=== PATIENT | female | born 1980 | race Caucasian/White ===

== ENCOUNTER → 2017-05-06 | Outpatient (CLI) | payer BC ==
--- NOTE | 2017-05-06 15:55 | CT ---
EXAMINATION TYPE: CT sinus wo con DATE OF EXAM: 05/06/2017 COMPARISON: NONE HISTORY: Patient complains of chronic sinus drainage. Patient has a history of prior sinus surgery. CT DLP: 666.6 mGycm CONTRAST: 0 mL of Omnipaque 300 The paranasal sinuses are examined in the axial plane at 2 mm thick sections. Reconstructed images i n the coronal plane were obtained. There is dental amalgam scatter artifact There is almost complete opacification of the right maxillary sinus. There is complete opacification left maxillary sinus post ethmoidectomy changes are present within the mid to posterior portion. The anterior and mid portions of the ethmoid air cells appear opacified. The frontal sinuses are complet eugene opacified. Sphenoid sinuses are clear. The septum is evaluated. There is septal deviation to the left. The ostiomeatal units are patent. There is prior uncinectomies. IMPRESSIONS: 1. Postsurgical changes with uncinectomies and ethmoidectomies. 2. Pansinus mucosal thickening with opacification of the left maxillary sinus and of anterior ethmoid air cells and left mid ethmoid air cells as well as the frontal sinuses. Correlate for chronic sinus itis. Polyposis could be considered within the differential.
== END | disposition home or self-care (01) ==
LOC: RADCTMAIN 15:30
PROVIDERS: ATTEND Family Medicine
DX: J34.89 Other specified disorders of nose and nasal sinuses (principal); Z98.890 Other specified postprocedural states
CPT/HCPCS: 70486

== ENCOUNTER 2021-03-31 10:48 | Outpatient (CLI) | payer BC ==
--- NOTE | 2021-03-31 12:49 | US ---
EXAMINATION TYPE: US OB >= 14 wk fetus DATE OF EXAM: 03/31/2021 COMPARISON: None CLINICAL HISTORY: rule out PROM, 27 weeks TECHNIQUE: Transabdominal (TA) GESTATIONAL AGE / DATING Physician Established: (27 weeks/3 days) EDC: 06/27/2021 Dates by LMP: (27 weeks/3 days) EDC: 06/27/2021 Dates by First Scan: No previous this is first scan Dates by Current Scan: (29 weeks/3 days) EDC: 06/13/2021 SURVEY IUP: Single PLACENTA: Posterior PREVIA: No Previa ANDREW: 16.6 cm Normal CERVICAL LENGTH (transabdominal: norm > 3.0cm): 3.6 cm BIOMETRY PRESENTATION: Breech LIE: Transverse with head maternal left BPD: 7.3 cm 29 weeks / 2 days HC: 27.3 cm 29 weeks / 6 days AC: 25.3 cm 29 weeks / 4 days FL: 5.4 cm 28 weeks / 5 days ESTIMATED WEIGHT IN GRAMS: 1353 grams ESTIMATED WEIGHT IN LBS/OZ: 3 lbs. 0 oz. WEIGHT PERCENTAGE BASED ON ESTABLISHED DATES: 95% HC/AC: 1.08 Normal FL/AC: 21% Normal HEART RATE: 143 bpm RHYTHM: Normal Viable IUP with an JANET of 06/13/2021 by this exam. This is not an anatomic survey. IMPRESSION: Single live intrauterine with gestational age measuring approximately 29 weeks and 3 days b y sonographic criteria.
--- NOTE | 2021-03-31 15:37 | P.TRANS ---
Providers Expected date of discharge: 03/31/21 Attending physician: Mitch Mcgrath Primary care physician: Stated None Hospital Course: Elmira is a 40-year-old at 27 weeks 2 days gestation who relates that last night in the middle night she noticed some leaking of fluid and noted that it was pink in color. She continued to leak somewhat through the night and into the morning therefore she called our office and was told go to labor and delivery. In labor and delivery and initial amniosure was performed which was positive the nurse did check her cervix even that she was in labor and was noted to be closed. One exam only has been done. Due to question all findings because there was some blood there and there is a failure rate of false positivity with amnio sugars and blood and ultrasound was done and the ANDREW in labor and delivery with 16. With what is a very normal ANDREW and limited leaking per patient at that time we did continue to monitor her for about an hour and repeated her amnisure at that time which unfortunately again was positive. Due to 2 positive amnisure tests we are transferring her to a tertiary care center for more thorough evaluation and further testing area and we did not give any steroids at this point. She is not klaudia or having any signs or symptoms of labor therefore no other medications have been started. We will defer to their care. I did discuss the case with maternal medicine and they have agreed to accept the transfer. All questions are answered for her at this time. She is otherwise stable. She and I did discuss that this may be more than what as needed as it may very well be that she is not rupture but with again 2 positive amnio sugars and less than 7% failure rate on any individual 1 even with blood present I cannot take the chance of having her go into labor at our facility at 27 weeks. Her vital signs are stable and afebrile. Heart regular, lungs clear, extremities without pain. Abdomen soft nontender to category 1 tracing is noted. Patient Condition at Discharge: Stable
[2021-03-31 16:18] VITALS: BP 116/66; PULSE 89; RESP 16; TEMP 98.5
== END 2021-03-31 16:35 | disposition other institution (70) ==
LOC: FBPOP 10:48
PROVIDERS: ATTEND Obstetrics & Gynecology
DX: O42.913 Preterm premature rupture of membranes, unspecified as to length of time between rupture and onset of labor, third trimester (principal); Z3A.29 29 weeks gestation of pregnancy; Z87.891 Personal history of nicotine dependence
CPT/HCPCS: 76805; 82731; 84112; 99213

== ENCOUNTER 2021-06-16 04:03 | Inpatient (IN) | payer BC ==
[2021-06-16] MEDS: LACTATED RINGERS 1,000 ML IV SCH ×3 (04:46→22:00)
[2021-06-16 05:28] LABS: Basophils % (A) 0 %; Eosinophils % (A) 0 %; HCT 34.2 % (34.0-46.0); HGB 11.5 gm/dL (11.4-16.0); Lymphocytes # (A) 1.6 k/uL (1.0-4.8); Lymphocytes % (A) 22 %; MCH 32.6 pg (25.0-35.0); MCHC 33.8 g/dL (31.0-37.0); MCV 96.5 fL (80.0-100.0); Mean Platelet Volume 10.8; Monocytes # (A) 0.5 k/uL (0-1.0); Monocytes % (A) 7 %; Neutrophils # (A) 5.2 k/uL (1.3-7.7); Neutrophils % (A) 69 %; Platelet Count 189 k/uL (150-450); RBC 3.54 m/uL (3.80-5.40); RDW 13.2 % (11.5-15.5); WBC 7.6 k/uL (3.8-10.6)
[2021-06-16] MEDS ORDERED: CITRIC ACID-SODIUM CITRATE 15 ML CUP PO ONE (06:58)
[2021-06-16] MEDS ORDERED: LACTATED RINGERS 1,000 ML IV ONE (06:59)
[2021-06-16] MEDS ORDERED: LIDOCAINE 1% (10MG/ML) FOR IV START INTRADERMA PRN (06:59)
[2021-06-16] MEDS ORDERED: LACTATED RINGERS 1,000 ML IV SCH (07:00)
[2021-06-16] MEDS ORDERED: MORPHINE SULFATE (PF) 0.3 MG/0.3 ML SYR ONE (07:20)
[2021-06-16] MEDS ORDERED: ONDANSETRON 4 MG/2 ML VIAL ONE (07:20)
[2021-06-16] MEDS ORDERED: .MORPHINE SULFATE (INJ) 10 MG/ML SYRINGE ONE (07:20)
[2021-06-16] MEDS ORDERED: KETOROLAC 15 MG/ML 1 ML VIAL ONE (07:20)
[2021-06-16] MEDS ORDERED: OXYTOCIN 30 UNITS/500 ML NS BAG IV ONE (07:20)
[2021-06-16] MEDS ORDERED: fentaNYL (PF) 50 MCG/ML 2 ML AMP ONE (07:20)
--- NOTE | 2021-06-16 07:23 | P.HPOB ---
History of Present Illness H&P Date: 06/16/21 Chief Complaint: Vaginal bleeding, contractions This is a 40-year-old female 3 para 1 with an estimated date of confinement of 06/27/2021, estimated gestational age of 38-3/7 weeks, presents to labor and delivery with complaints of vaginal bleeding when she woke up this morning followed by contractions that started on the way to the hospital. Her contractions have become stronger since she has been in triage. She denies any rupture of membranes. The bleeding was initially heavy with some small clots and has slowed down since arrival. course has been with Dr. Meza and has been uncomplicated per patient. labs: Hepatitis B surface antigen-negative RPR-nonreactive Rubella-immune Blood type-O+ Antibody screen-negative HIV-nonreactive Hemoglobin-12.4 Random glucose-73 One hour Glucola-133 Three-hour Glucola-within normal limits Group B streptococcus-negative Obstetrical history: . History of 1 section due to failure to progress. History of 1 miscarriage. 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 Review of Systems Constitutional: Denies chills, Denies fever Eyes: denies blurred vision, denies pain Ears, nose, mouth and throat: Denies headache, Denies sore throat Cardiovascular: Denies chest pain, Denies shortness of breath Respiratory: Denies cough Gastrointestinal: Reports abdominal pain (Contractions) Genitourinary: Reports abnormal vaginal bleeding, Reports pelvic pain Musculoskeletal: Reports low back pain Integumentary: Denies pruritus, Denies rash Neurological: Denies numbness, Denies weakness Psychiatric: Denies anxiety, Denies depression Past Medical History Past Medical History: No Reported History History of Any Multi-Drug Resistant Organisms: None Reported Past Surgical History: Section Additional Past Surgical History / Comment(s): sinus surgery Past Anesthesia/Blood Transfusion Reactions: No Reported Reaction Additional Past Anesthesia/Blood Transfusion Reaction / Comment(s): itching r/t duramorph. has had blood transfusion after previous c/s without reaction. Past Psychological History: No Psychological Hx Reported Smoking Status: Never smoker Past Alcohol Use History: None Reported Past Drug Use History: None Reported - Past Family History Father Family Medical History: Hypertension Medications and Allergies Home Medications Medication Instructions Recorded Confirmed Type Fgo-Oapo-Xteax Acid 1 each PO DAILY 07/09/14 06/16/21 History [-U Capsule] Aspirin [Children's Aspirin] 81 mg PO DAILY 03/31/21 06/16/21 History Allergies Allergy/AdvReac Type Severity Reaction Status Date / Time No Known Allergies Allergy Verified 06/16/21 04:22 Exam Osteopathic Statement: *. No significant issues noted on an osteopathic str uctural exam other than those noted in the History and Physical/Consult. Intake and Output 06/15/21 06/16/21 06/16/21 22:59 06:59 14:59 Other: Weight 85.275 kg HEENT: Within normal limits Heart: Regular rate and rhythm Lungs: Clear to auscultation bilaterally Abdomen: Cervix: Initially was 3 cm on admission and currently is 4 cm/90%/-2 station with a bulging bag and some bloody show. heart tones: Category 1, reactive Contractions: Every 2-4 minutes Extremities: Negative Homans Results Result Diagrams: 06/16/21 04:58 Abnormal Lab Results - Last 24 Hours (Table) 06/16/21 Range/Units 04:58 RBC 3.54 L (3.80-5.40) m/uL Assessment and Plan (1) 38 weeks gestation of Current Visit: Yes Status: Acute Code(s): Z3A.38 - 38 WEEKS GESTATION OF SNOMED Code(s): 32915762 (2) Active labor Current Visit: Yes Status: Acute Code(s): CJE8983 - SNOMED Code(s): 335325323 (3) Previous delivery affecting Current Visit: Yes Status: Acute Code(s): O34.219 - MATERNAL CARE FOR UNSP TYPE SCAR FROM PREVIOUS DEL SNOMED Code(s): 833033828 (4) Family planning Current Visit: Yes Status: Acute Code(s): Z30.09 - ENCOUNTER FOR OTH GENERAL CNSL AND ADVICE ON CONTRACEPTION SNOMED Code(s): 903279396 Plan: Plan is admission for repeat section with tubal ligation. Antibiotic prophylaxis. I have discussed the risks, benefits, and alternative therapies for the above- mentioned procedure and for both sedation/anesthesia as well as necessary blood products administration, if indicated, as they pertain to this patient. The patient has indicated her understanding and acceptance of the risks and procedures discussed.
[2021-06-16] MEDS ORDERED: ONDANSETRON 4 MG/2 ML VIAL IVP PRN (07:51)
[2021-06-16] MEDS ORDERED: diphenhydrAMINE 50 MG/ML 1 ML VIAL IVP PRN ×3 (07:51→08:10)
[2021-06-16] MEDS ORDERED: NALOXONE 0.4 MG/ML 1 ML VIAL IV PRN (07:51)
[2021-06-16] MEDS ORDERED: MORPHINE SULFATE 2 MG/ML SYRINGE IVP PRN (07:51)
[2021-06-16] MEDS ORDERED: diphenhydrAMINE 25 MG CAP PO PRN (08:10)
[2021-06-16] MEDS ORDERED: SIMETHICONE 80 MG CHEWABLE PO PRN (08:10)
[2021-06-16] MEDS ORDERED: LANOLIN CREAM 5 GM TUBE TOPICAL PRN (08:10)
[2021-06-16] MEDS ORDERED: METOCLOPRAMIDE 5 MG/ML 2 ML VIAL IVP PRN (08:10)
[2021-06-16] MEDS ORDERED: diphenhydrAMINE 50 MG CAP PO PRN (08:10)
[2021-06-16] MEDS ORDERED: ZOLPIDEM 5 MG TAB PO PRN (08:10)
--- NOTE | 2021-06-16 08:10 | P.OP ---
Date of Procedure: 06/16/21 Preoperative Diagnosis: 1. active labor 2. previous 3. family planning Postoperative Diagnosis: 1.active labor 2. previous 3. active labor Procedure(s) Performed: Repeat Low transverse with tubal ligation Anesthesia: spinal Surgeon: Noris Meza Seed Laboratory Technician #1: Viviana Alexander Estimated Blood Loss (ml): 343 IV fluids (ml): 500 Urine output (ml): 200 Pathology: other (segment of fallopian tubes and placenta) Condition: stable Disposition: floor Operative Findings: viable male. 9,9 weight 8 pounds 6 ounces Description of Procedure: Patient was taken to the operating room where spinal anesthesia was found be adequate. She was prepped and draped in normal sterile fashion in dorsal supine position with a leftward tilt. Pfannenstiel skin incision was made the scalpel and carried through to the underlying layer of fascia with the scalpel. Fascia was incised in midline and carried bilaterally with the Lam scissors. The superior aspect of the fascial incision was grasped with Madison clamps elevated and the underlying rectus muscles dissected off with the Lam's. Attention was then turned to inferior aspect of same incision which in a similar fashion was grasped tented up and the underlying rectus muscles dissected off with the Lam's. The rectus muscles were the midline and the peritoneum was identified tented up and entered sharply with the scalpel. The incision was extended superiorly and inferiorly with good visualization of the bladder. The bladder blade was inserted and the vesicouterine peritoneum was incised the Metzenbaums then carried bilaterally and bladder flap created digitally. A low transverse incision was then made on the uterus with the scalpel. This was carried bilaterally and digital manner. Infant's head delivered atraumatically, nose and mouth bulb suctioned, cord clamped and cut, handed off to waiting nurses. Apgars 9,9, weight 8 lbs. 6 oz. Placenta delivered manually, i ntact with three-vessel cord. The uterus is exteriorized and cleared of all clots and debris. The uterine incision was closed with 0 Vicryl in a running locked fashion. Second layer of the same sutures used in imbricating fashion to obtain excellent hemostasis. Bladder flap was then reapproximated using 2-0 Vicryl in a running fashion. Both ovaries and tubes appeared normal. The left fallopian tube was grasped with a hemostat and a window was made in the mesosalpinx with the Bovie. The left fallopian tube was doubly ligated and a segment was removed, pedicles cauterized with the Bovie. The right fallopian tube was grasped with hemostat and a window was made in the mesosalpinx with the Bovie. The right fallopian tube was doubly ligated and a segment was removed. The pedicles were cauterized with the Bovie. The uterus was placed back into the abdomen. The peritoneum was reapproximated using 2-0 Vicryl in a running fashion. The muscles were reapproximated using 2-0 Vicryl in interrupted fashion. The fascia was reapproximated using 0 Vicryl in a running fashion. The subcutaneous tissues closed with 3-0 Vicryl running fashion. The skin was closed omer. Patient tolerated the procedure well, sponge and instrument counts were correct times 2 and she was taken to the recovery room in stable condition.
[2021-06-16] MEDS ORDERED: OXYTOCIN 30 UNITS/500 ML NS 30 UNIT in SALINE 1 500ML.BAG IV SCH (08:15)
[2021-06-16] MEDS: KETOROLAC 15 MG/ML 1 ML VIAL IVP SCH (19:18)
[2021-06-16] MEDS: ACETAMINOPHEN TAB 500 MG TAB PO SCH (21:56)
[2021-06-16] MEDS: SENNOSIDES-DOCUSATE SODIUM 1 EACH TAB PO SCH (21:58)
[2021-06-16] MEDS: IBUPROFEN 600 MG TAB PO SCH ×2 (22:00→22:01)
[2021-06-17] MEDS: ACETAMINOPHEN TAB 500 MG TAB PO SCH ×4 (00:51→19:46)
[2021-06-17] MEDS: KETOROLAC 15 MG/ML 1 ML VIAL IVP SCH (04:13)
[2021-06-17 05:16] LABS: Basophils % (A) 0 %; Eosinophils % (A) 0 %; HCT 28.7 % (34.0-46.0); Lymphocytes # (A) 1.3 k/uL (1.0-4.8); Lymphocytes % (A) 15 %; MCH 33.7 pg (25.0-35.0); MCHC 34.4 g/dL (31.0-37.0); MCV 97.9 fL (80.0-100.0); Mean Platelet Volume 10.7; Monocytes # (A) 0.5 k/uL (0-1.0); Monocytes % (A) 6 %; Neutrophils # (A) 6.5 k/uL (1.3-7.7); Neutrophils % (A) 77 %; Platelet Count 143 k/uL (150-450); RBC 2.94 m/uL (3.80-5.40); RDW 13.5 % (11.5-15.5); WBC 8.5 k/uL (3.8-10.6)
[2021-06-17 05:49] LABS: HGB 9.9 gm/dL (11.4-16.0)
--- NOTE | 2021-06-17 07:10 | P.PN ---
Progress Note - Text 06/17/21 647am 30-year-old female status post with spinal Duramorph. Patient seen and evaluated this morning for postop pain control, patient has a VAS of 4, no complains of nausea vomiting or pruritus.
[2021-06-17] MEDS: SENNOSIDES-DOCUSATE SODIUM 1 EACH TAB PO SCH ×2 (08:29→20:01)
[2021-06-17] MEDS: IBUPROFEN 600 MG TAB PO SCH ×4 (11:24→23:28)
[2021-06-18 00:48] VITALS: RESP 16
[2021-06-18] MEDS: ACETAMINOPHEN TAB 500 MG TAB PO SCH ×3 (04:11→13:43)
--- NOTE | 2021-06-18 07:23 | P.PNOBGPC ---
Subjective - Subjective Principal diagnosis: S/P RLTCS with TL POD #1 Interval history: Pt seen and examined. Denies M/V,F/C, CP, SOB, calf pain. Patient reports: Reports appetite normal, Reports voiding normally, Reports pain well controlled, Reports ambulating normally : doing well Objective - Vital Signs Latest vital signs: Vital Signs Temp Pulse Resp BP 06/18/21 04:00 97.5 F L 78 16 123/74 06/18/21 00:00 98.0 F 58 L 16 119/56 06/17/21 16:00 98.5 F 142 H 44 H 124/79 06/17/21 11:40 98.0 F 75 17 118/71 06/17/21 08:30 98.3 F 72 16 130/84 - Exam Lungs: bilateral: normal Chest: Normal S1, Normal S2 Extremities: Present: normal Abdomen: Present: normal appearance, soft. Absent: distention, tenderness Incision: Present: normal, dry, intact Uterus: Present: normal, firm Assessment and Plan (1) Status post repeat low transverse section Current Visit: Yes Status: Acute Code(s): Z98.891 - HISTORY OF UTERINE SCAR FROM PREVIOUS SURGERY SNOMED Code(s): 518041592 (2) Status post tubal ligation at time of delivery, current hosp Current Visit: Yes Status: Acute Code(s): O80 - ENCOUNTER FOR FULL-TERM UNCOMPLICATED DELIVERY; Z30.2 - ENCOUNTER FOR STERILIZATION SNOMED Code(s): 877959470 Plan: 1. cont pp care
[2021-06-18] MEDS: SENNOSIDES-DOCUSATE SODIUM 1 EACH TAB PO SCH ×2 (07:34→09:21)
[2021-06-18] MEDS: IBUPROFEN 600 MG TAB PO SCH ×2 (07:34→09:21)
--- NOTE | 2021-06-18 07:53 | P.DS ---
Providers Date of admission: 06/16/21 07:02 Expected date of discharge: 06/18/21 Attending physician: Noris Meza Primary care physician: Stated None - Discharge Diagnosis(es) (1) Status post repeat low transverse section Current Visit: Yes Status: Acute (2) Status post tubal ligation at time of delivery, current hosp Current Visit: Yes Status: Acute Hospital Course: Patient presented in active labor. She underwent a repeat low transverse C- section with tubal ligation. Postoperative course is uncomplicated. She'll be discharged home postoperative day #1 in stable condition to follow-up with me in one week. Plan - Discharge Summary New Discharge Prescriptions: New oxyCODONE HCL [OxyIR] 5 mg PO Q4HR PRN #20 tab PRN Reason: Pain Scale 4 - 6 Ibuprofen [Motrin] 600 mg PO Q6H #40 tab No Action Xwi-Iidf-Qycpj Acid [-U Capsule] 1 each PO DAILY Aspirin [Children's Aspirin] 81 mg PO DAILY Discharge Medication List [id number]-Btkt-[id number] Acid [-U Capsule] 1 each PO DAILY 07/09/14 [History] Aspirin [Children's Aspirin] 81 mg PO DAILY 03/31/21 [History] Ibuprofen [Motrin] 600 mg PO Q6H #40 tab 06/18/21 [Rx] oxyCODONE HCL [OxyIR] 5 mg PO Q4HR PRN #20 tab 06/18/21 [Rx] Follow up Appointment(s)/Referral(s): Noris Meza DO [Doctor of Osteopathic Medicine] - 1 Week Discharge Disposition: HOME SELF-CARE
[2021-06-18 15:00] VITALS: BP 127/71; PULSE 72; TEMP 98.3
== END 2021-06-18 18:44 | disposition home or self-care (01) | DRG 785 ==
LOC: FBPOP 04:03 → 4FBP 07:02
PROVIDERS: ADMIT Obstetrics & Gynecology; ATTEND Obstetrics & Gynecology
PROC: 0UB70ZZ Excision of Bilateral Fallopian Tubes, Open Approach (ICD-10-PCS; 2021-06-16)
PROC: 10D00Z1 Extraction of Products of Conception, Low, Open Approach (ICD-10-PCS; principal; 2021-06-16 07:20)
DX: O34.211 Maternal care for low transverse scar from previous cesarean delivery (principal); Z30.2 Encounter for sterilization; Z37.0 Single live birth; Z3A.38 38 weeks gestation of pregnancy; Z79.82 Long term (current) use of aspirin
CPT/HCPCS: 59025; 85025; 86850; 86900; 86901; 88302; 88307; 99213

== ENCOUNTER → 2024-01-14 | Outpatient (CLI) | payer BC ==
--- NOTE | 2024-01-14 13:58 | US ---
EXAMINATION TYPE: US abdomen limited DATE OF EXAM: 01/14/2024 COMPARISON: NONE CLINICAL INDICATION: Female, 43 years old with history of R10.11 RUQ PAIN R10.811 RUQ ABD TENDERNESS; RUQ pain x 1 month, gets worse after eating TECHNIQUE: Multiple sonographic images of the right upper quadrant are obtained. FINDINGS: EXAM MEASUREMENTS: Liver Length: 13.7 cm Gallbladder Wall: 0.2 cm CBD: 0.4 cm Right Kidney: 9.4 x 4.0 x 4.0 cm Pancreas: visualized portions wnl, limited by overlying midline bowel gas Liver: mildly heterogeneous Gallbladder: wnl Evidence for sonographic Eisenberg's sign: yes CBD: wnl Right Kidney: wnl IMPRESSION: 1. No acute ultrasound abnormality right upper quadrant ultrasound.
== END | disposition home or self-care (01) ==
LOC: RADUSWWP 08:55
PROVIDERS: ATTEND Family Medicine
DX: R10.11 Right upper quadrant pain (principal); R10.811 Right upper quadrant abdominal tenderness
CPT/HCPCS: 76705

== ENCOUNTER → 2024-02-15 | Outpatient (CLI) | payer BC ==
--- NOTE | 2024-02-15 09:44 | NM ---
EXAMINATION TYPE: NM hepatobiliary w EF DATE OF EXAM: 02/15/2024 9:11 AM COMPARISON: Ultrasound 01/14/2024 CLINICAL INDICATION:Female, 43 years old with history of R10.11 RUQ pain; TECHNIQUE: The patient was given 5 mCi of Technetium 99m-Mebrofenin as a radiotracer and multiple sc intigraphic images were obtained of the abdomen. Gallbladder function was also assessed after the adm inistration of ensure drink and additional scintigraphic images were obtained of the abdomen. A regio n of interest was drawn over the gallbladder and a timing activity curve was generated. The gallbladd er ejection fraction was calculated. FINDINGS: Normal uptake of radiotracer was identified within the liver with excretion into the hepatic and comm on biliary ducts within 120 seconds . There was normal progressive washout of the liver over the cour se of the study. Radiotracer uptake within the gallbladder at 12/42 minutes as well as small bowel ac tivity was identified at 44 minutes minutes. Maximum calculated gallbladder ejection fraction is: 61% at 30 minutes (Normal gallbladder ejection fraction is > 35%) IMPRESSION: 1. Normal hepatobiliary scan. 2. Normal ejection fraction.
== END ==
LOC: RADNMMAIN 06:58
PROVIDERS: ATTEND Family Medicine
DX: R10.11 Right upper quadrant pain (principal); R10.811 Right upper quadrant abdominal tenderness; Z87.891 Personal history of nicotine dependence
CPT/HCPCS: 78226; A9537

== ENCOUNTER → 2025-05-16 | Outpatient (CLI) | payer BC ==
--- NOTE | 2025-05-16 09:10 | CT ---
EXAMINATION TYPE: CT abdomen pelvis w con CT DLP: 450.50 mGycm, Automated exposure control for dose reduction was used. DATE OF EXAM: 05/16/2025 9:04 AM COMPARISON: Abdominal ultrasound 01/14/2024, nuclear medicine HIDA scan 02/15/2024 CLINICAL INDICATION:Female, 44 years old with history of R10.11,R10.811,R10.813 NAUSEA; RT sided abdo celia pain TECHNIQUE: Standard CT of the abdomen and pelvis following the administration of 100 cc of Isovue 3 00 IV contrast material and oral contrast. Coronal and sagittal reformats were performed. FINDINGS: LOWER CHEST: Unremarkable ABDOMEN LIVER: Unremarkable GALLBLADDER AND BILE DUCTS: Unremarkable. PANCREAS: Unremarkable. SPLEEN: Unremarkable. ADRENAL GLANDS: Unremarkable. KIDNEYS AND URETERS: No evidence of hydronephrosis or renal calculus. The kidneys enhance symmetrical ly. Contrast demonstrate within both collecting systems on the delayed phase. Prominent bilateral ext rarenal pelvises. PELVIS BLADDER: Unremarkable REPRODUCTIVE: Unremarkable. ABDOMEN & PELVIS STOMACH AND BOWEL: Stomach and duodenum are unremarkable. Enteric contrast reaches the rectum. No bow el wall thickening or stranding inflammatory changes. The appendix is within normal limits. No eviden ce of bowel obstruction. PERITONEUM: No evidence of pneumoperitoneum or free fluid. VASCULATURE: No evidence of aortic aneurysm. Left-sided pelvic fluid. MUSCULOSKELETAL: No acute osseous abnormalities. Mild degenerative disc disease L5-S1 with a broad-ba sed disc bulge. No significant spinal canal stenosis. LYMPH NODES: No evidence for lymphadenopathy. SOFT TISSUE/ABDOMINAL WALL: Unremarkable IMPRESSION: No CT evidence for acute abdominal/pelvic process. [facility], , 05/16/2025 9:08 AM
== END | disposition home or self-care (01) ==
LOC: RADCTMAIN 06:30
PROVIDERS: ATTEND Family Medicine
DX: R11.0 Nausea (principal); R10.813 Right lower quadrant abdominal tenderness
CPT/HCPCS: 74177; Q9967